=== PATIENT | female | born 1980 | race American Indian/Alaskan Native ===

== ENCOUNTER 2020-09-15 20:36 | Inpatient (IN) | payer MEDICAID ==
[2020-09-15] MEDS ORDERED: VANCOMYCIN/NS 1 GM/250 ML 1 GM/250 ML BAG IV SCH (21:07)
[2020-09-15 21:08] LABS: Basophils % (Auto) 0.4 % (0.0-1.8); Eosinophils # (Auto) 0.1 K/mm3 (0.0-0.4); Eosinophils % (Auto) 1.5 % (0.0-4.3); Hematocrit 29.3 % (30.3-42.9); Hemoglobin 9.1 gm/dl (10.1-14.3); Lymphocytes % (Auto) 23.1 % (13.4-35.0); Mean Corpuscular HGB Conc 31 % (30-34); Monocytes # (Auto) 0.5 K/mm3 (0.0-0.8); Monocytes % (Auto) 5.6 % (0.0-7.3); Platelet Count 243 K/mm3 (140-440); Red Blood Count 5.01 M/mm3 (3.65-5.03)
[2020-09-15] MEDS ORDERED: TERBUTALINE 1 MG/1 ML INJ SUB-Q PRN (21:12)
[2020-09-15] MEDS ORDERED: CARBOPROST TROMETHAMINE 250 MCG/1 ML INJ IM PRN (21:12)
[2020-09-15] MEDS ORDERED: miSOPROStol 200 MCG TAB PR PRN (21:12)
[2020-09-15] MEDS ORDERED: NALOXONE 0.4 MG/1 ML INJ IV PRN (21:12)
[2020-09-15] MEDS ORDERED: ePHEDrine SULFATE 50 MG/1 ML INJ IV PRN (21:12)
[2020-09-15] MEDS ORDERED: LIDOCAINE (2%) 20 MG/1 ML VIAL 20 ML MDV INFILTRATI ONE (21:12)
[2020-09-15] MEDS ORDERED: METHYLERGONOVINE MALEATE 0.2 MG/ML VIAL IM PRN (21:12)
[2020-09-15] MEDS ORDERED: fentaNYL 100 MCG/2 ML INJ IV PRN (21:12)
[2020-09-15] MEDS ORDERED: BUTORPHANOL 2 MG/1 ML INJ IV PRN (21:12)
[2020-09-15] MEDS ORDERED: OXYTOCIN 10 UNIT/1 ML INJ IM PRN (21:12)
[2020-09-15] MEDS ORDERED: MINERAL OIL 30 ML ORAL LIQD PO PRN (21:12)
[2020-09-15] MEDS ORDERED: LOPERAMIDE 2 MG CAP PO PRN (21:12)
[2020-09-15] MEDS ORDERED: ONDANSETRON 4 MG/2 ML INJ IV PRN (21:12)
[2020-09-15] MEDS ORDERED: LACTATED RINGERS 1,000 ML ONE (21:13)
[2020-09-15] MEDS ORDERED: LACTATED RINGERS 1,000 ML IV SCH (21:15)
[2020-09-15 21:25] LABS: Mean Corpuscular Volume 59 fl (79-97); Red Cell Distribution Width 21.2 % (13.2-15.2)
[2020-09-15 21:40] LABS: Hepatitis C Virus Antibody Non-Reactive (NonReactive)
--- NOTE | 2020-09-15 21:43 | History and Physical Report ---
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 Denies vaginal bleeding or LOF. Denies PIH symptoms. No records available. Past History Past Medical History: asthma, hematologic disorders (unknown name with associated anemia and recurrent transfusion) Past Surgical History: D&C (x5 for EAB), other (R open oophrectomy, R open salpingectomy (seperate procedures)) Family/Genetic History: none Social history: no significant social history - Obstetrical History Expected Date of Delivery: 09/21/20 Actual Gestation: 39 Week(s) 1 Day(s) : 15 Para: 9 Hx # Term Pregnancies: 9 Induced : 5 Number of Living Children: 9 Medications and Allergies Allergies Allergy/AdvReac Type Severity Reaction Status Date / Time Penicillins Allergy Anaphylaxis Verified 02/19/20 07:26 Active Meds: Active Medications Butorphanol Tartrate (Butorphanol 2 Mg/1 Ml Inj) 2 mg IV Q2H PRN PRN Reason: Pain , Severe (7-10) Carboprost Tromethamine (Carboprost Tromethamine 250 Mcg/1 Ml Inj) 250 mcg IM ONCE PRN PRN Reason: Uterine Bleeding Ephedrine Sulfate (Ephedrine Sulfate 50 Mg/1 Ml Inj) 10 mg IV Q2M PRN PRN Reason: Hypotension Fentanyl (Fentanyl 100 Mcg/2 Ml Inj) 100 mcg IV Q2H PRN PRN Reason: Pain,Severe (7-10) LABOR PAIN Vancomycin HCl (Vancomycin/Ns 1 Gm/250 Ml) 1 gm in 250 mls @ 166.667 mls/hr IV Q12H ZAHEER; Protocol Vancomycin HCl 2,000 mg/ (Sodium Chloride) 540 mls @ 250 mls/hr IV ONCE ONE Stop: 09/16/20 00:09 Oxytocin/Sodium Chloride (Pitocin/Ns 30 Unit/500ml) 30 units in 500 mls @ 2 mls/hr IV TITR ZAHEER; Protocol Lactated Ringer's (Lactated Ringers) 1,000 mls @ 125 mls/hr IV DIRECT ZAHEER Oxytocin/Sodium Chloride (Pitocin/Ns 30 Unit/500ml) 30 units in 500 mls @ 40 mls/hr IV TITR ZAHEER; Protocol Lidocaine (Lidocaine (2%) 20 Mg/1 Ml Vial 20 Ml Mdv) 20 ml INFILTRATI ONCE ONE Stop: 09/15/20 21:13 Loperamide HCl (Loperamide 2 Mg Cap) 2 mg PO ONCE PRN PRN Reason: give with Hemabate Methylergonovine Maleate (Methylergonovine Maleate 0.2 Mg/Ml Vial) 0.2 mg IM ONCE PRN PRN Reason: Uterine Bleeding Mineral Oil (Mineral Oil 30 Ml Oral Liqd) 30 ml PO QHS PRN PRN Reason: Constipation Misoprostol (Misoprostol 200 Mcg Tab) 800 mcg OR ONCE PRN PRN Reason: Uterine Bleeding Naloxone HCl (Naloxone 0.4 Mg/1 Ml Inj) 0.1 mg IV Q2MIN PRN PRN Reason: Res Rate </= 8 or 02 SAT < 92% Ondansetron HCl (Ondansetron 4 Mg/2 Ml Inj) 4 mg IV Q8H PRN PRN Reason: Nausea And Vomiting Oxytocin (Oxytocin 10 Unit/1 Ml Inj) 10 unit IM ONCE PRN PRN Reason: Uterine Bleeding Terbutaline Sulfate (Terbutaline 1 Mg/1 Ml Inj) 0.25 mg SUB-Q ONCE PRN PRN Reason: Hyperstimulation/Hypertonicity Review of Systems All systems: negative (expect HPI) - Vital Signs Vital signs: Vital Signs Temp Resp 98 F 16 09/15/20 20:54 09/15/20 20:54 Temp Pulse Resp BP Pulse Ox 98 F 77 16 144/81 09/15/20 20:54 09/15/20 21:34 09/15/20 20:54 09/15/20 21:34 - Physical Exam Lungs: Positive: Clear to auscultation, Normal air movement Abdomen: Positive: normal appearance, normal bowel sounds, other (gravid) Genitourinary (Female): Positive: normal external genitalia - Obstetrical FHR: category 1 Uterine Contraction Monitor Mode: External Cervical Dilatation: 6 Uterine Contraction Pattern: Regular Results Result Diagrams: 09/15/20 20:00 Abnormal lab results 09/15/20 Range/Units 20:00 Hgb 9.1 L (10.1-14.3) gm/dl Hct 29.3 L (30.3-42.9) % MCV 59 L (79-97) fl MCH 18 L (28-32) pg RDW 21.2 H (13.2-15.2) % All other labs normal. Assessment and Plan - Patient Problems (1) Active labor Current Visit: Yes Status: Acute Plan to address problem: Proceed with expectant management of full term gestation with no records available with PNC with [facility] -- panel --Expectant management with Pitocin prn contractions --Vanc 1g q12H with GBS unknown with PCN allergy --Epidural available with labs return --Anticipate
[2020-09-15] MEDS ORDERED: OXYTOCIN DRIP 30 UNITS/500 ML BAG IV SCH ×2 (22:00)
[2020-09-15] MEDS ORDERED: VANCOMYCIN 2,000 MG in SODIUM CHLORIDE 0.9% 500 ML 500 ML IV ONE (22:00)
[2020-09-15] MEDS ORDERED: VANCOMYCIN PHARMACY TO DOSE IV SCH (23:45)
[2020-09-16] MEDS ORDERED: NALOXONE 2 MG/2 ML INJ IV PRN (00:05)
[2020-09-16] MEDS ORDERED: ePHEDrine SULFATE 50 MG/1 ML INJ IV PRN (00:05)
--- NOTE | 2020-09-16 00:09 | Anesthesia Consultation ---
Anesthesia Consult and Med Hx Date of service: 09/16/20 - Airway Anesthetic Teeth Evaluation: Poor ROM Head & Neck: Adequate Mental/Hyoid Distance: Adequate Mallampati Class: Class II Intubation Access Assessment: Good - Pulmonary Exam CTA: Yes - Cardiac Exam Cardiac Exam: RRR - Pre-Operative Health Status ASA Pre-Surgery Classification: ASA3 Proposed Anesthetic Plan: Epidural - Pulmonary Hx Smoking: Yes (stop 2020) Hx Asthma: Yes Hx Respiratory Symptoms: No SOB: No COPD: No Home Oxygen Therapy: No Hx Pneumonia: No Hx Sleep Apnea: No - Cardiovascular System Hx Hypertension: No Hx Coronary Artery Disease: No Hx Heart Attack/AMI: No Hx Angina: No Hx Percutaneous Transluminal Coronary Angioplasty (PTCA): No Hx Cardia Arrhythmia: No Hx Pacemaker: No Hx Internal Defibrillator: No Hx Valvular Heart Disease: No Hx Heart Murmur: No Hx Peripheral Vascular Disease: No - Central Nervous System Hx Neuromuscular Disorder: No Hx Seizures: No CVA: No Hx Back Pain: Yes Hx Psychiatric Problems: No - Gastrointestinal Hx Ulcer: No Hx Gastroesophageal Reflux Disease: Yes - Endocrine Hx Renal Disease: No Hx End Stage Renal Disease: No Hx Cirrhosis: No Hx Liver Disease: No Hx Insulin Dependent Diabetes: No Hx Non-Insulin Dependent Diabetes: No Hx Thyroid Disease: No Hx Hypothyroidism: No Hx Hyperthyroidism: No - Hematic Hx Anemia: Yes Hx Sickle Cell Disease: No - Other Systems Hx Alcohol Use: No Hx Substance Use: No Hx Cancer: No Hx Obesity: Yes
--- NOTE | 2020-09-16 00:10 | Progress Note ---
Labor Epidural - Labor Epidural Start Time: 23:40 Stop Time: 23:50 Performed by:: DUKE POZO Procedure: Patient is requesting a laboring epidural for laboring pain. Patient IDed, H&P reviewed, all questions and concerns were answered, and consent was signed. Timeout was performed at bedside. Patient in sitting position. Sterile prep and drape was performed. [3] ml of 1% lidocaine skin wheal at L[3]- L [4]. 18- gauge Tuohy epidural needle was advanced to loss of resistance with saline technique 6cm. Single dural perforation via 27 guage spinal needle placed through the shaft of Epidural needle. Positive CSF via spinal needle. Negative CSF negative blood via Epidural needle. Epidural catheter advanced to [10] centimeters. [NEGATIVE] Aspiration [NEGATIVE] test dose. Negative Paresthesia. Sterile dressing applied. Patient tolerated procedure.
[2020-09-16] MEDS ORDERED: fentaNYL-BUPIV 2 MCG/ML-0.125% 200 MCG/100 ML BAG EPIDURAL SCH (01:00)
--- NOTE | 2020-09-16 01:23 | Ultrasound Report ---
Limited OB Ultrasound HISTORY: EGA. TECHNIQUE: Grayscale and color imaging performed. COMPARISON: None FINDINGS: Single viable intrauterine gestation with cephalic presentation. Heart rate is 138 bpm. Ove aurelia EGA is 37 weeks and 4 days by ultrasound with an especially delivery date of 10/02/2020. The clini oriana gestational age is reported to be 39 weeks and 1 day. weight is 3517 g. IMPRESSION: Single viable intrauterine gestation as outlined above. Slight discrepancy between the ul trasound and clinical gestational ages. Signer Name: Harry Serrano MD Signed: 09/16/2020 1:18 AM Workstation Name: [id number]
[2020-09-16] MEDS ORDERED: diphenhydrAMINE 25 MG CAP PO PRN (04:05)
[2020-09-16] MEDS ORDERED: ACETAMINOPHEN 325 MG TAB PO PRN (04:05)
[2020-09-16] MEDS ORDERED: PROMETHAZINE 25 MG RECT SUPP PR PRN (04:05)
[2020-09-16] MEDS ORDERED: MAGNESIUM HYDROXIDE (MOM) ORAL LIQD UDC PO PRN (04:05)
[2020-09-16] MEDS ORDERED: WITCH HAZEL/ GLYCERIN PAD TP PRN (04:05)
[2020-09-16] MEDS ORDERED: BENZOCAINE/MENTHOL 20/0.5% TOP SPRAY 56 GM TP PRN (04:05)
[2020-09-16] MEDS ORDERED: ONDANSETRON 4 MG/2 ML INJ IV PRN (04:05)
[2020-09-16] MEDS ORDERED: LANOLIN/ZINC/DIMETHICONE (LANSINOH) 7 GM TP PRN (04:05)
[2020-09-16] MEDS ORDERED: HYDROCORTISONE 25 MG RECTAL SUPP PR PRN (04:05)
[2020-09-16] MEDS ORDERED: PROMETHAZINE 25 MG TAB PO PRN (04:05)
--- NOTE | 2020-09-16 04:13 | Procedure Note ---
OB Delivery Note - Delivery Date of Delivery: 09/16/20 Surgeon: DESTINY SETH JR Estimated blood loss: 200cc - Vaginal Delivery presentation: vertex Delivery position: OA Intrapartum events: none Delivery induction: oxytocin Delivery augmentation: rupture of membranes, pitocin Delivery monitor: external FHT, external uterine Route of delivery: Episiotomy: none Delivery laceration: 2nd degree Delivery repair: vicryl Anesthesia: epidural Delivery comments: Spontaneous vaginal delivery male at 0350 with spontaneous delivery of placenta at 0352. 3919 g, 20 inches. Apgars 8/9. Patient received 800 mcg of Cytotec rectally secondary to the uterine atony. Noted to have second-degree laceration after delivery repaired with 2-0 Vicryl. Fundus noted to be firm below the umbilicus. - Infant A at 1 minute: 8 at 5 minutes: 9 Infant Gender: Male
[2020-09-16] MEDS: SENNOSIDES/DOCUSATE SODIUM 8.6/50 MG TAB PO SCH ×2 (06:53→20:31)
[2020-09-16] MEDS: IBUPROFEN 600 MG TAB PO SCH ×4 (06:54→20:32)
[2020-09-16] MEDS: DOCUSATE SODIUM 100 MG CAP PO SCH ×2 (09:58→21:47)
[2020-09-16] MEDS: PRENATAL VIT27-FE FUMARATE-FOLIC ACID VIT TAB PO SCH (09:58)
[2020-09-16] MEDS: HYDROcodone/ACETAMINOPHEN 5-325 MG TAB PO PRN ×2 (09:58→21:48)
[2020-09-16] MEDS: FERROUS SULFATE 325 MG TAB PO SCH ×2 (09:58→21:47)
[2020-09-16] MEDS ORDERED: VANCOMYCIN 1,250 MG in SODIUM CHLORIDE 0.9% 250ML 250 ML IV SCH (12:00)
[2020-09-16 16:20] LABS: Hematocrit 27.5 % (30.3-42.9); Hemoglobin 8.5 gm/dl (10.1-14.3)
[2020-09-17] MEDS ORDERED: FERROUS SULFATE 325 MG TAB PO SCH (10:00)
[2020-09-17] MEDS: DOCUSATE SODIUM 100 MG CAP PO SCH (11:00)
[2020-09-17] MEDS: PRENATAL VIT27-FE FUMARATE-FOLIC ACID VIT TAB PO SCH (11:00)
[2020-09-17] MEDS: FERROUS SULFATE 325 MG TAB PO SCH (11:00)
[2020-09-17] MEDS: HYDROcodone/ACETAMINOPHEN 5-325 MG TAB PO PRN (12:30)
[2020-09-17] MEDS: IBUPROFEN 600 MG TAB PO SCH (12:30)
--- NOTE | 2020-09-17 13:51 | Post Anesthesia Evaluation ---
- Post Anesthesia Evaluation Patient Participated: Yes Airway Patent: Yes Stable Respiratory Function: Yes Nausea/Vomiting: No Temp > 96.8F: Yes Pain Manageable: Yes Adequeate Hydration: Yes Anesthesia Complications: No Block Receding Appropriately: Yes Patient on Ventilator: No
[2020-09-17 17:25] VITALS: BP 136/79
--- NOTE | 2020-09-17 20:22 | Progress Note ---
Assessment and Plan A: S/P Asymptomatic anemia P: D/C home per pt request Fe rich diet Subjective - Subjective Date of service: 09/17/20 Principal diagnosis: s/p Patient reports: appetite normal, voiding normally, pain well controlled, ambulating normally Bandy: doing well, bottle feeding Objective - Vital Signs Latest vital signs: Vital Signs Temp Pulse Resp BP BP Pulse Ox 09/17/20 16:58 98.2 F 77 20 136/79 98 09/17/20 08:34 98.0 F 66 20 113/69 100 09/17/20 00:00 98.6 F 66 16 114/78 09/16/20 22:48 18 09/16/20 21:48 18 09/16/20 21:32 18 09/16/20 20:32 18 Intake and Output 09/17/20 09/17/20 09/17/20 06:59 14:59 22:59 Intake Total 300 240 840 Balance 300 240 840 Intake: Oral 240 480 Intake, Free Water 300 360 Other: Total, Intake Amount 240 480 # Voids Void 1 1 3 - Exam Breasts: Present: normal Abdomen: Present: normal appearance, soft, normal bowel sounds Vulva: both: normal Uterus: Present: normal, firm, fundal height below umbilicus Extremities: Present: normal Incision: Present: normal, intact, other (2nd degree perineal)
--- NOTE | 2020-09-17 20:24 | Discharge Summary ---
Providers - Providers Date of Admission: 09/15/20 20:36 Date of discharge: 09/17/20 Attending physician: DESTINY SETH JR, MD Primary care physician: DESTINY SETH JR, MD Hospitalization Reason for admission: active labor Delivery: Episiotomy: none Laceration: 2nd degree Incision: normal, intact Other procedures: none complications: none Discharge diagnosis: IUP at term delivered [place] baby: male Hospital course: Pt was admitted in actifve labor and had a w/o pp complications. See h&P, delivery summary, and pp notes. Condition at discharge: Stable Disposition: DC-01 TO HOME OR SELFCARE Plan - Discharge Medications Prescriptions: Ferrous Sulfate [Feosol 325 MG tab] 325 mg PO BID #90 tablet Ibuprofen [Ibu-200] 600 mg PO Q6HR #60 tablet - Provider Discharge Summary Activity: routine, no sex for 6 weeks, no heavy lifting 4 weeks, no strenuous exercise Diet: other (high Fe) Instructions: routine Additional instructions: [] Smoking cessation referral if applicable(refer to patient education folder for contact #) [] Refer to [facility]'s [facility] Booklet Call your doctor immediately for: * Fever > 100.5 * Heavy vaginal bleeding ( >1 pad per hour) * Severe persistent headache * Shortness of breath * Reddened, hot, painful area to leg or breast * Drainage or odor from incision. * Keep incision clean and dry at all times and follow doctor's instructions regarding bathing/showering - Follow up plan Follow up: DESTINY SETH JR, MD [Primary Care Provider] - 6 Weeks Forms: [facility] Discharge Summary
== END 2020-09-17 17:04 | disposition home or self-care (01) | DRG 775 ==
LOC: LD 20:36 → OB 09-16 06:05
PROVIDERS: ADMIT Obstetrics & Gynecology; ATTEND Obstetrics & Gynecology
PROC: 10E0XZZ Delivery of Products of Conception, External Approach (ICD-10-PCS; principal; 2020-09-16)
PROC: 0KQM0ZZ Repair Perineum Muscle, Open Approach (ICD-10-PCS; 2020-09-16)
PROC: 3E033VJ Introduction of Other Hormone into Peripheral Vein, Percutaneous Approach (ICD-10-PCS; 2020-09-16)
PROC: 00HU33Z Insertion of Infusion Device into Spinal Canal, Percutaneous Approach (ICD-10-PCS; 2020-09-16)
PROC: 3E0R3BZ Introduction of Anesthetic Agent into Spinal Canal, Percutaneous Approach (ICD-10-PCS; 2020-09-16)
DX: O99.02 Anemia complicating childbirth (principal); Z3A.39 39 weeks gestation of pregnancy; O99.12 Other diseases of the blood and blood-forming organs and certain disorders involving the immune mechanism complicating childbirth; Z20.822 Contact with and (suspected) exposure to COVID-19; Z37.0 Single live birth; O70.1 Second degree perineal laceration during delivery; O99.52 Diseases of the respiratory system complicating childbirth; O99.214 Obesity complicating childbirth; J45.909 Unspecified asthma, uncomplicated; K21.9 Gastro-esophageal reflux disease without esophagitis; Z90.721 Acquired absence of ovaries, unilateral; Z88.0 Allergy status to penicillin; Z87.891 Personal history of nicotine dependence
CPT/HCPCS: 36415; 59025; 76816; 85014; 85018; 85025; 86592; 86706; 86762; 86803; 86850; 86900; 86901; 87806; 96360; 96361; 96365; 96366; 96372; G0378; J2590; J3370; J7040; J7120; U0003